=== PATIENT | female | born 1995 | race Caucasian/White ===

== ENCOUNTER 2020-03-18 00:19 | Inpatient (IN) | payer MEDICAID ==
[2020-03-18] MEDS ORDERED: Sodium Chloride 0.9% 10 ML Syringe FLUSH PRN (00:40)
[2020-03-18] MEDS ORDERED: Ampicillin 2 GM in Sodium Chloride 0.9% 100 ML IV ONE (00:40)
[2020-03-18] MEDS ORDERED: Butorphanol 1 MG/ML SDV IVPUSH PRN (00:40)
[2020-03-18] MEDS ORDERED: Tranexamic Acid 1,000 MG in Sodium Chloride 0.9% 100 ML IV PRN (00:40)
[2020-03-18] MEDS ORDERED: Sodium Chloride 0.9% 10 ML SDV IV PRN (00:40)
[2020-03-18] MEDS ORDERED: Misoprostol 200 MCG Tab PO PRN (00:40)
[2020-03-18] MEDS ORDERED: Methylergonovine 0.2 MG/1 ML Amp IM PRN (00:40)
[2020-03-18] MEDS ORDERED: Carboprost Tromethamine 250 MCG/1 ML Amp IM PRN (00:40)
[2020-03-18] MEDS ORDERED: Sodium Chloride 0.9% 2.5 ML Syringe FLUSH PRN (00:40)
[2020-03-18] MEDS ORDERED: Lidocaine 1% 50 ML MDV INJECT PRN (00:40)
[2020-03-18] MEDS ORDERED: Water For Irrigation,Sterile 1,000 ML Container IRR PRN (00:40)
[2020-03-18] MEDS ORDERED: Nalbuphine 10 MG/1 ML Vial IVPUSH PRN (00:40)
[2020-03-18] MEDS ORDERED: Oxytocin/0.9 % Sodium Chloride 30 UNIT/500 ML BAG IV SCH (00:45)
[2020-03-18] MEDS: Lactated Ringers 1,000 ML IV SCH ×3 (00:58→06:58)
[2020-03-18] MEDS ORDERED: fentaNYL 100 MCG/2 ML SDV ONE (02:16)
[2020-03-18] MEDS ORDERED: Ropivacaine HCl/PF 100 ML ONE (02:16)
--- NOTE | 2020-03-18 02:36 | PCM.PREANE ---
Preanesthetic Assessment - Anesthesia/Transfusion/Family Hx Anesthesia History: Prior Anesthesia Without Reaction Family History of Anesthesia Reaction: No - Physical Assessment NPO Status Date: 03/17/20 NPO Status Time: 18:00 Height: 1.68 m ASA Class: 1 - Lab Values: Laboratory Last Values WBC 11.74 K/uL (4.0-11.0) H 03/18/20 00:55 RBC 3.96 M/uL (4.30-5.90) L 03/18/20 00:55 Hgb 11.8 g/dL (12.0-16.0) L 03/18/20 00:55 Hct 36.0 % (36.0-46.0) 03/18/20 00:55 MCV 90.9 fL (80.0-98.0) 03/18/20 00:55 MCH 29.8 pg (27.0-32.0) 03/18/20 00:55 MCHC 32.8 g/dL (31.0-37.0) 03/18/20 00:55 RDW Std Deviation 43.1 fl (28.0-62.0) 03/18/20 00:55 RDW Coeff of Berncie 13 % (11.0-15.0) 03/18/20 00:55 Plt Count 201 K/uL (150-400) 03/18/20 00:55 MPV 12.30 fL (7.40-12.00) H 03/18/20 00:55 Urine Color YELLOW 03/18/20 00:30 Urine Appearance SLT CLOUDY 03/18/20 00:30 Urine pH 6.5 (5.0-8.0) 03/18/20 00:30 Ur Specific English 1.015 (1.001-1.035) 03/18/20 00:30 Urine Protein NEGATIVE mg/dL (NEGATIVE) 03/18/20 00:30 Urine Glucose (UA) NEGATIVE mg/dL (NEGATIVE) 03/18/20 00:30 Urine Ketones NEGATIVE mg/dL (NEGATIVE) 03/18/20 00:30 Urine Occult Blood NEGATIVE (NEGATIVE) 03/18/20 00:30 Urine Nitrite NEGATIVE (NEGATIVE) 03/18/20 00:30 Urine Bilirubin NEGATIVE (NEGATIVE) 03/18/20 00:30 Urine Urobilinogen 0.2 EU/dL (<2.0) 03/18/20 00:30 Ur Leukocyte Esterase TRACE (NEGATIVE) H 03/18/20 00:30 Urine Opiates Screen NEGATIVE (NEGATIVE) 03/18/20 00:30 Ur Oxycodone Screen NEGATIVE (NEGATIVE) 03/18/20 00:30 Urine Methadone Screen NEGATIVE (NEGATIVE) 03/18/20 00:30 Ur Barbiturates Screen NEGATIVE (NEGATIVE) 03/18/20 00:30 Ur Phencyclidine Scrn NEGATIVE (NEGATIVE) 03/18/20 00:30 Ur Amphetamine Screen NEGATIVE (NEGATIVE) 03/18/20 00:30 U Methamphetamines Scrn NEGATIVE (NEGATIVE) 03/18/20 00:30 U Benzodiazepines Scrn NEGATIVE (NEGATIVE) 03/18/20 00:30 U Cocaine Metab Screen NEGATIVE (NEGATIVE) 03/18/20 00:30 U Marijuana (THC) Screen NEGATIVE (NEGATIVE) 03/18/20 00:30 Rubella IgG Ab Index 87.3 IU/mL 03/18/20 00:55 Blood Type O POSITIVE 03/18/20 00:55 Antibody Screen NEGATIVE 03/18/20 00:55 - Allergies Allergies/Adverse Reactions: Allergies Allergy/AdvReac Type Severity Reaction Status Date / Time No Known Allergies Allergy Verified 03/18/20 02:16 - Acknowledgements Anesthesia Type Planned: Epidural Pt an Appropriate Candidate for the Planned Anesthesia: Yes Alternatives and Risks of Anesthesia Discussed w Pt/Guardian: Yes Pt/Guardian Understands and Agrees with Anesthesia Plan: Yes PreAnesthesia Questionnaire - HOME MEDS Home Medications: Home Meds Citalopram Hydrobromide [Celexa] 1 tab PO DAILY 03/18/20 [History] Levothyroxine Sodium [Synthroid] 1 tab PO DAILY 03/18/20 [History] Pnv No.95/Ferrous Fum/Folic AC [ Tablet] 1 tab PO DAILY 03/18/20 [ History] - CURRENT (IN HOUSE) MEDS Current Meds: Current Medications Butorphanol Tartrate (Stadol) 1 mg IVPUSH Q1H PRN PRN Reason: Pain Last Admin: 03/18/20 01:13 Dose: 1 mg Carboprost Tromethamine (Hemabate Ds) 250 mcg IM ASDIRECTED PRN PRN Reason: Post Hemorrhage Lactated Ringer's (Ringers, Lactated) 1,000 mls @ 150 mls/hr IV ASDIRECTED [facility] Last Admin: 03/18/20 02:07 Dose: 999 mls/hr Oxytocin/Sodium Chloride (Oxytocin 30 Unit/500 Ml-Ns) 30 unit in 500 mls @ 999 mls/hr IV TITRATE [facility] Tranexamic Acid 1,000 mg/ (Sodium Chloride) 110 mls @ 660 mls/hr IV ONETIME PRN PRN Reason: Bleeding Lidocaine HCl (Xylocaine 1%) 50 ml INJECT ONETIME PRN PRN Reason: Laceration repair Methylergonovine Maleate (Methergine) 0.2 mg IM ASDIRECTED PRN PRN Reason: Post Hemorrhage Misoprostol (Cytotec) 200 mcg PO ONETIME PRN PRN Reason: Post Hemorrhage Nalbuphine HCl (Nubain) 10 mg IVPUSH Q1H PRN PRN Reason: Pain (severe 7-10) Sodium Chloride (Saline Flush) 10 ml FLUSH ASDIRECTED PRN PRN Reason: Keep Vein Open Sodium Chloride (Saline Flush) 2.5 ml FLUSH ASDIRECTED PRN PRN Reason: Keep Vein Open Sodium Chloride (Normal Saline) 10 ml IV ASDIRECTED PRN PRN Reason: IV Use Sterile Water (Sterile Water For Irrigation) 1,000 ml IRR ASDIRECTED PRN PRN Reason: delivery Discontinued Medications Fentanyl (Sublimaze) Confirm Administered Dose 100 mcg .ROUTE .STK-MED ONE Stop: 03/18/20 02:17 Ampicillin Sodium 2 gm/ Sodium (Chloride) 100 mls @ 200 mls/hr IV ONETIME ONE Stop: 03/18/20 01:09 Last Admin: 03/18/20 01:12 Dose: 200 mls/hr Ropivacaine (Naropin 0.2%) Confirm Administered Dose 100 mls @ as directed .ROUTE .STK-MED ONE Stop: 03/18/20 02:17
--- NOTE | 2020-03-18 02:39 | PCM.PRNOTE ---
- Free Text/Narrative Note: Anes Note Patient requests epidural for L&D. Sitting position, level L3-L4 midline approach. Sterile technique. Chloraprep scrub to lumbar area. Sterile fenestrated drape applied. Epidural space easily achieved single attempt with ease using TRE technique. TRE at 4 cm. Cath theaded 5 cm with ease. Cath secured at skin at 11 cm using sterile clear adhesive dressing. 0225 Test 3 cc 1.5% lido with epi negative 0230 Load 10 cc 0.2% ropiv iwht 1 mcg cc fentanyl cc in slow divided doses. 0235 Pump started with 90 cc same solution. Rate is 8 cc hr with 6 cc q 20 min prn bolus. Laura well. Time with patient [id number] Reynaldo Iglesias FACTORY REPRESENTATIVE
[2020-03-18] MEDS ORDERED: Ampicillin 1 GM in Sodium Chloride 0.9% 50 ML IV SCH (04:30)
[2020-03-18] MEDS ORDERED: Witch Hazel Medicated Pads 40/Jar TOP PRN (08:46)
[2020-03-18] MEDS ORDERED: oxyCODONE 5 MG Tab PO PRN (08:46)
[2020-03-18] MEDS ORDERED: Lanolin 100% Cream 7 GM Tube TOP PRN (08:46)
[2020-03-18] MEDS ORDERED: Ibuprofen 400 MG Tab PO PRN (08:46)
[2020-03-18] MEDS ORDERED: Benzocaine/Menthol 20%-0.5% Spray 78 GM Cannister TOP PRN (08:46)
[2020-03-18] MEDS ORDERED: Docusate Sodium 100 MG Cap PO PRN (08:46)
[2020-03-18] MEDS ORDERED: Acetaminophen 500 MG Tab PO PRN ×2 (08:46)
[2020-03-18] MEDS ORDERED: Bisacodyl 10 MG Supp RECTAL PRN (08:46)
--- NOTE | 2020-03-18 08:56 | PCM.DEL ---
L & D Note - General Info Date of Service: 03/18/20 - Delivery Note Labor: Spontaneous Delivery Outcome: Livebirth Delivery Method: Spontaneous Vaginal Delivery-Single Presentation: Left Occiput Anterior (RALEIGH) Nuchal Cord: None Anesthesia Type: Epidural Laceration: 2nd Degree Suture size: 2-0 Placenta: Spontaneous Cord: 3 Vessels Estimated Blood Loss: 200 Resuscitation Needed: No Score 1 min: 8 Score 5 min: 9 Delivery Comments (Free Text/Narrative):: Live Male delivered at 807am , 8/9 weight 4250g - General Info Date of Service: 03/18/20 - Patient Data Weight - Most Recent: 123.06 kg Lab Results Last 24 Hours: Laboratory Results - last 24 hr 03/18/20 03/18/20 03/18/20 Range/Units 00:30 00:30 00:55 WBC 11.74 H (4.0-11.0) K/uL RBC 3.96 L (4.30-5.90) M/uL Hgb 11.8 L (12.0-16.0) g/dL Hct 36.0 (36.0-46.0) % MCV 90.9 (80.0-98.0) fL MCH 29.8 (27.0-32.0) pg MCHC 32.8 (31.0-37.0) g/dL RDW Std Deviation 43.1 (28.0-62.0) fl RDW Coeff of Bernice 13 (11.0-15.0) % Plt Count 201 (150-400) K/uL MPV 12.30 H (7.40-12.00) fL Urine Color YELLOW Urine Appearance SLT CLOUDY Urine pH 6.5 (5.0-8.0) Ur Specific [place] 1.015 (1.001-1.035) Urine Protein NEGATIVE (NEGATIVE) mg/dL Urine Glucose (UA) NEGATIVE (NEGATIVE) mg/dL Urine Ketones NEGATIVE (NEGATIVE) mg/dL Urine Occult Blood NEGATIVE (NEGATIVE) Urine Nitrite NEGATIVE (NEGATIVE) Urine Bilirubin NEGATIVE (NEGATIVE) Urine Urobilinogen 0.2 (<2.0) EU/dL Ur Leukocyte Esterase TRACE H (NEGATIVE) Urine Opiates Screen NEGATIVE (NEGATIVE) Ur Oxycodone Screen NEGATIVE (NEGATIVE) Urine Methadone Screen NEGATIVE (NEGATIVE) Ur Barbiturates Screen NEGATIVE (NEGATIVE) Ur Phencyclidine Scrn NEGATIVE (NEGATIVE) Ur Amphetamine Screen NEGATIVE (NEGATIVE) U Methamphetamines Scrn NEGATIVE (NEGATIVE) U Benzodiazepines Scrn NEGATIVE (NEGATIVE) U Cocaine Metab Screen NEGATIVE (NEGATIVE) U Marijuana (THC) Screen NEGATIVE (NEGATIVE) Rubella IgG Ab Index IU/mL Blood Type Antibody Screen 03/18/20 03/18/20 Range/Units 00:55 00:55 WBC (4.0-11.0) K/uL RBC (4.30-5.90) M/uL Hgb (12.0-16.0) g/dL Hct (36.0-46.0) % MCV (80.0-98.0) fL MCH (27.0-32.0) pg MCHC (31.0-37.0) g/dL RDW Std Deviation (28.0-62.0) fl RDW Coeff of Bernice (11.0-15.0) % Plt Count (150-400) K/uL MPV (7.40-12.00) fL Urine Color Urine Appearance Urine pH (5.0-8.0) Ur Specific [place] (1.001-1.035) Urine Protein (NEGATIVE) mg/dL Urine Glucose (UA) (NEGATIVE) mg/dL Urine Ketones (NEGATIVE) mg/dL Urine Occult Blood (NEGATIVE) Urine Nitrite (NEGATIVE) Urine Bilirubin (NEGATIVE) Urine Urobilinogen (<2.0) EU/dL Ur Leukocyte Esterase (NEGATIVE) Urine Opiates Screen (NEGATIVE) Ur Oxycodone Screen (NEGATIVE) Urine Methadone Screen (NEGATIVE) Ur Barbiturates Screen (NEGATIVE) Ur Phencyclidine Scrn (NEGATIVE) Ur Amphetamine Screen (NEGATIVE) U Methamphetamines Scrn (NEGATIVE) U Benzodiazepines Scrn (NEGATIVE) U Cocaine Metab Screen (NEGATIVE) U Marijuana (THC) Screen (NEGATIVE) Rubella IgG Ab Index 87.3 IU/mL Blood Type O POSITIVE Antibody Screen NEGATIVE Med Orders - Current: Current Medications Acetaminophen (Tylenol Extra Strength) 500 mg PO Q4H PRN PRN Reason: Pain Acetaminophen (Tylenol Extra Strength) 1,000 mg PO Q4H PRN PRN Reason: Pain Benzocaine/Menthol (Dermoplast Pain Relief 20%-0.5% [place]) 78 gm TOP ASDIRECTED PRN PRN Reason: Perineal Comfort Measure Bisacodyl (Dulcolax) 10 mg RECTAL ONETIME PRN PRN Reason: Constipation Butorphanol Tartrate (Stadol) 1 mg IVPUSH Q1H PRN PRN Reason: Pain Last Admin: 03/18/20 01:13 Dose: 1 mg Carboprost Tromethamine (Hemabate Ds) 250 mcg IM ASDIRECTED PRN PRN Reason: Post Hemorrhage Docusate Sodium (Colace) 100 mg PO BID PRN PRN Reason: Constipation Emollient Ointment (Lansinoh Hpa) 0 gm TOP ASDIRECTED PRN PRN Reason: Sore Nipples Lactated Ringer's (Ringers, Lactated) 1,000 mls @ 150 mls/hr IV ASDIRECTED [facility] Last Admin: 03/18/20 06:58 Dose: 150 mls/hr Oxytocin/Sodium Chloride (Oxytocin 30 Unit/500 Ml-Ns) 30 unit in 500 mls @ 999 mls/hr IV TITRATE [facility] Tranexamic Acid 1,000 mg/ (Sodium Chloride) 110 mls @ 660 mls/hr IV ONETIME PRN PRN Reason: Bleeding Ampicillin Sodium 1 gm/ Sodium (Chloride) 50 mls @ 100 mls/hr IV Q4H [facility] Last Admin: 03/18/20 05:02 Dose: 100 mls/hr Ibuprofen (Motrin) 400 mg PO Q4H PRN PRN Reason: Pain Ibuprofen (Motrin) 800 mg PO Q6H PRN PRN Reason: Pain Lidocaine HCl (Xylocaine 1%) 50 ml INJECT ONETIME PRN PRN Reason: Laceration repair Methylergonovine Maleate (Methergine) 0.2 mg IM ASDIRECTED PRN PRN Reason: Post Hemorrhage Misoprostol (Cytotec) 200 mcg PO ONETIME PRN PRN Reason: Post Hemorrhage Nalbuphine HCl (Nubain) 10 mg IVPUSH Q1H PRN PRN Reason: Pain (severe 7-10) Oxycodone HCl (Oxycodone) 5 mg PO Q2H PRN PRN Reason: Pain Sodium Chloride (Saline Flush) 10 ml FLUSH ASDIRECTED PRN PRN Reason: Keep Vein Open Sodium Chloride (Saline Flush) 2.5 ml FLUSH ASDIRECTED PRN PRN Reason: Keep Vein Open Sodium Chloride (Normal Saline) 10 ml IV ASDIRECTED PRN PRN Reason: IV Use Sterile Water (Sterile Water For Irrigation) 1,000 ml IRR ASDIRECTED PRN PRN Reason: delivery Michael Pelletier (Tucks) 1 pad TOP ASDIRECTED PRN PRN Reason: comfort care Discontinued Medications Fentanyl (Sublimaze) Confirm Administered Dose 100 mcg .ROUTE .STK-MED ONE Stop: 03/18/20 02:17 Last Admin: 03/18/20 02:56 Dose: Not Given Ampicillin Sodium 2 gm/ Sodium (Chloride) 100 mls @ 200 mls/hr IV ONETIME ONE Stop: 03/18/20 01:09 Last Admin: 03/18/20 01:12 Dose: 200 mls/hr Ropivacaine (Naropin 0.2%) Confirm Administered Dose 100 mls @ as directed .ROUTE .STK-MED ONE Stop: 03/18/20 02:17 Last Admin: 03/18/20 02:56 Dose: Not Given - Problem List & Annotations (1) Vaginal delivery SNOMED Code(s): 869672020 Code(s): O80 - ENCOUNTER FOR FULL-TERM UNCOMPLICATED DELIVERY Status: Acute Current Visit: Yes - Problem List Review Problem List Initiated/Reviewed/Updated: Yes - My Orders Last 24 Hours: My Active Orders 03/18/20 00:40 Patient Status [ADT] Routine Heart Tones [RC] CONTINUOUS Non Stress Test [RC] PER UNIT ROUTINE May Shower [RC] ASDIRECTED Notify Provider [RC] PRN Up ad Evelyne [RC] ASDIRECTED Vaginal Exam [RC] PRN Vital Signs [RC] PER UNIT ROUTINE Butorphanol [Stadol] 1 mg IVPUSH Q1H PRN Carboprost Tromethamine [Hemabate DS] 250 mcg IM ASDIRECTED PRN Lidocaine 1% [Xylocaine 1%] 50 ml INJECT ONETIME PRN Methylergonovine [Methergine] 0.2 mg IM ASDIRECTED PRN Nalbuphine [Nubain] 10 mg IVPUSH Q1H PRN Sodium Chloride 0.9% [Normal Saline] 10 ml IV ASDIRECTED PRN Sodium Chloride 0.9% [Saline Flush] 10 ml FLUSH ASDIRECTED PRN Sodium Chloride 0.9% [Saline Flush] 2.5 ml FLUSH ASDIRECTED PRN Tranexamic Acid [Cyklokapron] 1,000 mg Sodium Chloride 0.9% [Normal Saline] 100 ml IV ONETIME Water For Irrigation,Sterile [Sterile Water for Irrigation] 1,000 ml IRR ASDIRECTED PRN miSOPROStoL [Cytotec] 200 mcg PO ONETIME PRN OB Panel [OM.PC] Urgent Peripheral IV Insertion Adult [OM.PC] Routine 03/18/20 00:42 CULTURE GROUP B STREP [RM] Routine 03/18/20 00:45 Lactated Ringers [Ringers, Lactated] 1,000 ml IV ASDIRECTED Oxytocin/0.9 % Sodium Chloride [Oxytocin 30 Unit/500 ML-NS] 30 unit in 500 ml IV TITRATE 03/18/20 00:55 RPR (SYPHILIS SERO) W/ RFLX [REF] Routine 03/18/20 04:30 Ampicillin 1 gm Sodium Chloride 0.9% [Normal Saline] 50 ml IV Q4H 03/18/20 08:46 Patient Status [ADT] Routine May Shower [RC] ASDIRECTED Up ad Evelyne [RC] ASDIRECTED Vital Signs [RC] PER UNIT ROUTINE Acetaminophen [Tylenol Extra Strength] 1,000 mg PO Q4H PRN Acetaminophen [Tylenol Extra Strength] 500 mg PO Q4H PRN Benzocaine/Menthol [Dermoplast Pain Relief 20%-0.5% [place]] 78 gm TOP ASDIRECTED PRN Docusate Sodium [Colace] 100 mg PO BID PRN Ibuprofen [Motrin] 400 mg PO Q4H PRN Ibuprofen [Motrin] 800 mg PO Q6H PRN Lanolin [Lansinoh HPA] See Dose Instructions TOP ASDIRECTED PRN bisacodyL [Dulcolax] 10 mg RECTAL ONETIME PRN oxyCODONE 5 mg PO Q2H PRN witch Eulalio [Tucks] 1 pad TOP ASDIRECTED PRN Assess Lochia [WOMSER] Per Unit Routine Assess Uterine Involution [WOMSER] Per Unit Routine Peripheral IV Discontinue [OM.PC] Routine Resuscitation Status Routine 03/19/20 05:11 HEMOGLOBIN/HEMATOCRIT,HH [HEME] Timed 03/19/20 05:15 T4 FREE [CHEM] Routine TSH [CHEM] Routine
--- NOTE | 2020-03-18 13:48 | PCM.POSTAN ---
POST ANESTHESIA ASSESSMENT - MENTAL STATUS Mental Status: Alert, Oriented - RESPIRATORY Respiratory Status: Respiratory Rate WNL, Airway Patent, O2 Saturation Stable - CARDIOVASCULAR CV Status: Pulse Rate WNL, Blood Pressure Stable - GASTROINTESTINAL GI Status: No Symptoms - PAIN Pain Score: 0 - POST OP HYDRATION Hydration Status: Adequate & Stable
[2020-03-18] MEDS: Ibuprofen 800 MG Tab PO PRN ×2 (14:42→22:38)
--- NOTE | 2020-03-18 15:42 | OR ---
SURGEON: ROBERT MELGOZA DATE OF PROCEDURE: 03/18/2020 PREOPERATIVE DIAGNOSIS: A 24-year-old, G2, P 1-0-0-1, at 40 weeks 3 days, in early labor. POSTOPERATIVE DIAGNOSIS: A 24-year-old, G2, P 1-0-0-1, at 40 weeks 3 days, in early labor. PROCEDURE: Normal spontaneous vaginal delivery, repair of second-degree vaginal laceration. ESTIMATED BLOOD LOSS: 300. IV FLUID: Pitocin running. ANESTHESIA: Epidural. NOTES AND FINDINGS: Live male delivered at 8:07 a.m. score of 8 and 9. Weight is 4250 g. BRIEF HISTORY: She is a 24-year-old, G2, P 1-0-0-1, at 40 weeks 3 days, who was a late transfer for care. She had no care from about 24 weeks. She transferred to [facility] and was about to be seen the morning prior to presenting in active labor. She came in 7 cm dilated. She was GBS unknown. The patient then made change. She became fully dilated. DESCRIPTION OF PROCEDURE: With the patient being fully dilated, she was encouraged to push. With good pushing effort, she delivered the head, subsequently by the anterior and posterior shoulder. Body of the was delivered. was placed on maternal abdomen. The cord was clamped and cut. Delayed cord clamping was observed. The placenta was delivered via controlled cord traction. The perineum was inspected and noted to have a second-degree laceration, which was repaired in layers with 2-0 Monocryl. Cord blood gases were obtained, and the patient was left in Labor and Delivery in stable condition. IVANNA / GLORIA /[id number] JON
--- NOTE | 2020-03-18 23:03 | PCM48HPAN ---
Post Anesthesia Note - EVALUATION WITHIN 48HRS OF ANESTHETIC Vital Signs in Normal Range: Yes Patient Participated in Evaluation: Yes Respiratory Function Stable: Yes Airway Patent: Yes Cardiovascular Function Stable: Yes Hydration Status Stable: Yes Pain Control Satisfactory: Yes Nausea and Vomiting Control Satisfactory: Yes Mental Status Recovered: Yes Vital Signs: Last Vital Signs Temp 36.2 C 03/18/20 19:00 Pulse 89 03/18/20 19:00 Resp 16 03/18/20 19:00 BP 121/57 L 03/18/20 19:00 Pulse Ox 96 03/18/20 19:00
[2020-03-19] MEDS ORDERED: Levothyroxine 25 MCG Tab PO SCH (07:30)
[2020-03-19] MEDS: Ibuprofen 800 MG Tab PO PRN (07:43)
--- NOTE | 2020-03-19 07:56 | PCM.PNPP ---
- General Info Date of Service: 03/19/20 Functional Status: Reports: Pain Controlled, Tolerating Diet, Ambulating, Urinating - Review of Systems General: Reports: No Symptoms HEENT: Reports: No Symptoms Pulmonary: Reports: No Symptoms Cardiovascular: Reports: No Symptoms Gastrointestinal: Reports: No Symptoms Genitourinary: Reports: No Symptoms Musculoskeletal: Reports: No Symptoms Skin: Reports: No Symptoms Neurological: Reports: No Symptoms Psychiatric: Reports: No Symptoms - Patient Data Vital Signs - Most Recent: Last Vital Signs Temp 36.1 C 03/19/20 05:58 Pulse 75 03/19/20 05:58 Resp 16 03/19/20 05:58 BP 89/55 L 03/19/20 05:58 Pulse Ox 97 03/19/20 05:58 Weight - Most Recent: 123.06 kg Lab Results - Last 24 Hours: Laboratory Results - last 24 hr 03/19/20 03/19/20 Range/Units 05:45 05:45 Hgb 10.5 L (12.0-16.0) g/dL Hct 33.8 L (36.0-46.0) % Free T4 0.90 (0.76-1.46) ng/dL TSH 3rd Generation 4.42 H (0.36-3.74) uIU/mL Med Orders - Current: Current Medications Acetaminophen (Tylenol Extra Strength) 500 mg PO Q4H PRN PRN Reason: Pain Acetaminophen (Tylenol Extra Strength) 1,000 mg PO Q4H PRN PRN Reason: Pain Benzocaine/Menthol (Dermoplast Pain Relief 20%-0.5% [place]) 78 gm TOP ASDIRECTED PRN PRN Reason: Perineal Comfort Measure Bisacodyl (Dulcolax) 10 mg RECTAL ONETIME PRN PRN Reason: Constipation Butorphanol Tartrate (Stadol) 1 mg IVPUSH Q1H PRN PRN Reason: Pain Last Admin: 03/18/20 01:13 Dose: 1 mg Carboprost Tromethamine (Hemabate Ds) 250 mcg IM ASDIRECTED PRN PRN Reason: Post Hemorrhage Citalopram Hydrobromide (Celexa) 10 mg PO DAILY [facility] Docusate Sodium (Colace) 100 mg PO BID PRN PRN Reason: Constipation Emollient Ointment (Lansinoh Hpa) 0 gm TOP ASDIRECTED PRN PRN Reason: Sore Nipples Lactated Ringer's (Ringers, Lactated) 1,000 mls @ 150 mls/hr IV ASDIRECTED [facility] Last Admin: 03/18/20 06:58 Dose: 150 mls/hr Oxytocin/Sodium Chloride (Oxytocin 30 Unit/500 Ml-Ns) 30 unit in 500 mls @ 999 mls/hr IV TITRATE [facility] Last Admin: 03/18/20 09:53 Dose: 999 mls/hr Tranexamic Acid 1,000 mg/ (Sodium Chloride) 110 mls @ 660 mls/hr IV ONETIME PRN PRN Reason: Bleeding Ibuprofen (Motrin) 400 mg PO Q4H PRN PRN Reason: Pain Ibuprofen (Motrin) 800 mg PO Q6H PRN PRN Reason: Pain Last Admin: 03/19/20 07:43 Dose: 800 mg Levothyroxine Sodium (Levothyroxine) 25 mcg PO ACBREAKFAST [facility] Last Admin: 03/19/20 07:43 Dose: 25 mcg Lidocaine HCl (Xylocaine 1%) 50 ml INJECT ONETIME PRN PRN Reason: Laceration repair Methylergonovine Maleate (Methergine) 0.2 mg IM ASDIRECTED PRN PRN Reason: Post Hemorrhage Misoprostol (Cytotec) 200 mcg PO ONETIME PRN PRN Reason: Post Hemorrhage Nalbuphine HCl (Nubain) 10 mg IVPUSH Q1H PRN PRN Reason: Pain (severe 7-10) Oxycodone HCl (Oxycodone) 5 mg PO Q2H PRN PRN Reason: Pain Sodium Chloride (Saline Flush) 10 ml FLUSH ASDIRECTED PRN PRN Reason: Keep Vein Open Sodium Chloride (Saline Flush) 2.5 ml FLUSH ASDIRECTED PRN PRN Reason: Keep Vein Open Sodium Chloride (Normal Saline) 10 ml IV ASDIRECTED PRN PRN Reason: IV Use Sterile Water (Sterile Water For Irrigation) 1,000 ml IRR ASDIRECTED PRN PRN Reason: delivery Last Admin: 03/18/20 09:53 Dose: 1,000 ml Witch Liyah (Tucks) 1 pad TOP ASDIRECTED PRN PRN Reason: comfort care Discontinued Medications Fentanyl (Sublimaze) Confirm Administered Dose 100 mcg .ROUTE .STK-MED ONE Stop: 03/18/20 02:17 Last Admin: 03/18/20 02:56 Dose: Not Given Ampicillin Sodium 2 gm/ Sodium (Chloride) 100 mls @ 200 mls/hr IV ONETIME ONE Stop: 03/18/20 01:09 Last Admin: 03/18/20 01:12 Dose: 200 mls/hr Ropivacaine (Naropin 0.2%) Confirm Administered Dose 100 mls @ as directed .ROUTE .STK-MED ONE Stop: 03/18/20 02:17 Last Admin: 03/18/20 02:56 Dose: Not Given Ampicillin Sodium 1 gm/ Sodium (Chloride) 50 mls @ 100 mls/hr IV Q4H [facility] Last Admin: 03/18/20 05:02 Dose: 100 mls/hr - Infant Interaction Infant Disposition, : in Room with Family Interaction: Holding Feeding: Breastfed Infant; Nursed Well Support Person: Significant Other - Recovery Exam Fundal Tone: Firm Fundal Level: At Umbilicus Fundal Placement: Midline Lochia Amount: Scant Lochia Color: Rubra/Red Other Perinuem Description: 2nd degree laceration, repaired. Bladder Status: Voiding Urinary Elimination: Voided - Exam General: Alert, Oriented Neck: Supple Lungs: Normal Respiratory Effort Cardiovascular: Regular Rate GI/Abdominal Exam: Soft, Non-Tender Extremities: Non-Tender Skin: Warm, Dry, Intact Neurological: No New Focal Deficit Psy/Mental Status: Alert, Normal Affect, Normal Mood - Problem List & Annotations (1) Vaginal delivery SNOMED Code(s): 298138400 Code(s): O80 - ENCOUNTER FOR FULL-TERM UNCOMPLICATED DELIVERY Status: Acute Current Visit: Yes - Problem List Review Problem List Initiated/Reviewed/Updated: Yes - My Orders Last 24 Hours: My Active Orders 03/19/20 07:30 Levothyroxine 25 mcg PO ACBREAKFAST 03/19/20 07:54 Ready for Discharge [RC] PER UNIT ROUTINE 03/19/20 09:00 Citalopram [Celexa] 10 mg PO DAILY - Assessment Assessment:: 24yo P2 s/p , PPD#1 - Plan Plan:: 1. Hypothyroidism - has not been taking Levothyroxine for several weeks, will restart and check TSH/FT4 in 4-6 weeks, adjust dose if needed. 2. Depression - restart Celexa. 3. HSV - daily Valacyclovir prophylaxis per patient request. 4. Dispo - discharge home today, reviewed discharge instructions.
[2020-03-19] MEDS ORDERED: Citalopram 20 MG Tab PO SCH (09:00)
== END 2020-03-19 10:50 | disposition home or self-care (01) | DRG 807 ==
LOC: MW.OBCHECK 00:19 → MW.OB 00:26 → MW.OBCHECK 00:40 → OBSVTOIN 08:07 → MW.OB 09:24
PROVIDERS: ADMIT Obstetrics & Gynecology; ATTEND Obstetrics & Gynecology
PROC: 10E0XZZ Delivery of Products of Conception, External Approach (ICD-10-PCS; principal; 2020-03-18)
PROC: 0KQM0ZZ Repair Perineum Muscle, Open Approach (ICD-10-PCS; 2020-03-18)
PROC: 3E0R3BZ Introduction of Anesthetic Agent into Spinal Canal, Percutaneous Approach (ICD-10-PCS; 2020-03-18)
PROC: 00HU33Z Insertion of Infusion Device into Spinal Canal, Percutaneous Approach (ICD-10-PCS; 2020-03-18)
DX: O48.0 Post-term pregnancy (principal); Z37.0 Single live birth; O99.284 Endocrine, nutritional and metabolic diseases complicating childbirth; E03.9 Hypothyroidism, unspecified; O99.344 Other mental disorders complicating childbirth; F32.9 Major depressive disorder, single episode, unspecified; Z3A.40 40 weeks gestation of pregnancy; O70.1 Second degree perineal laceration during delivery
CPT/HCPCS: 01967; 36415; 51702; 59025; 59409; 80305-QW; 81003; 84439; 84443; 85014; 85018; 85027; 86592; 86593; 86762; 86850; 86900; 86901; A9270-GY; J0290; J0595; J2590; J7050; J7120